=== PATIENT | female | born 1995 | race Hispanic/Latino ===

== ENCOUNTER 2021-12-29 05:41 | Inpatient (IN) | payer MEDICAID, SELFPAY ==
[2021-12-29] MEDS ORDERED: Promethazine HCl 25 MG/ML VIAL IM PRN ×3 (06:03→11:30)
[2021-12-29] MEDS ORDERED: Bicitra 30 ML UDCUP PO PRN (06:03)
[2021-12-29] MEDS ORDERED: hydrALAZINE 20 MG/ML VIAL SLOW IVP PRN ×2 (06:03→11:30)
[2021-12-29] MEDS ORDERED: Acetaminophen 500 MG TAB PO PRN (06:03)
[2021-12-29] MEDS ORDERED: Famotidine/PF 20 mg/2ml Vial SLOW IVP PRN (06:03)
[2021-12-29] MEDS ORDERED: Docusate 100 MG CAP PO PRN (06:03)
[2021-12-29] MEDS ORDERED: Ondansetron PF 4 MG/2 ML Vial IVP PRN ×3 (06:03→11:30)
[2021-12-29] MEDS ORDERED: Lactated Ringer's 1,000 ML IV SCH (06:15)
[2021-12-29] MEDS ORDERED: CEFAZOLIN 2 GM in Sodium Chloride 0.9% 100 ML IVPB SCH (06:15)
[2021-12-29 06:19] LABS: Hemoglobin 13.4 g/dL (12.0-15.5); Mean Corpuscular Hemoglobin 30.4 pg (27.0-33.0); Mean Corpuscular Volume 86.8 fl (81.6-98.3); Mean Platelet Volume 11.3 fl (7.4-10.4); Platelet Count 191 10x3/uL (150-450); RBC Distribution Width 12.8 % (11.5-14.5); Red Blood Cell (RBC) Count 4.41 10x6/uL (3.90-5.03); White Blood Cell (WBC) Count 11.6 10x3/uL (3.5-10.5)
[2021-12-29] MEDS ORDERED: Fentanyl 100 MCG/2 ML VIAL ONE (06:45)
[2021-12-29] MEDS ORDERED: Ketorolac Tromethamine 30 MG/ML VIAL ONE (06:46)
[2021-12-29 06:49] LABS: RapidComm Collect By CBN
[2021-12-29 06:50] LABS: RapidComm Collect By CBN
[2021-12-29 06:52] LABS: Syphilis Antibody Nonreactive (Nonreactive); Syphilis Antibody Index 0.06 S/CO (<1.00 Non-Reactive)
[2021-12-29 06:53] LABS: Hep B Surf Ag Non-Reactive S/CO (NonReactive)
[2021-12-29] MEDS ORDERED: Oxytocin 10 UNITS/ML VIAL ONE (06:58)
[2021-12-29] MEDS ORDERED: Fentanyl 100 MCG/2 ML VIAL SLOW IVP PRN (07:15)
[2021-12-29] MEDS ORDERED: diphenhydrAMINE 50 MG/ML VIAL IM PRN (07:15)
[2021-12-29] MEDS ORDERED: Communication Order-Pharmacy FS SCH (07:15)
[2021-12-29] MEDS ORDERED: Zolpidem Tartrate 5 MG TAB PO PRN (07:15)
[2021-12-29] MEDS ORDERED: Naloxone HCl 0.4 mg/ml Vial IV PRN (07:15)
[2021-12-29] MEDS ORDERED: diphenhydrAMINE 50 MG/ML VIAL IVP PRN (07:15)
[2021-12-29] MEDS ORDERED: Ketorolac Tromethamine 30 MG/ML VIAL IVP SCH (07:15)
[2021-12-29] MEDS ORDERED: diphenhydrAMINE 25 MG CAP PO PRN ×2 (07:15→11:30)
[2021-12-29] MEDS ORDERED: Ondansetron HCl/PF 4 MG/2 ML Vial IVP PRN (07:15)
[2021-12-29] MEDS ORDERED: Meperidine HCl/PF 25 MG/ML VIAL SLOW IVP PRN (07:15)
[2021-12-29 07:31] VITALS: BMI 23.6
[2021-12-29] MEDS: FENTANYL 500 MCG/10 ML VIAL 1,000 MCG in Sodium Chloride 0.9% 30 ML IV PRN ×2 (08:07→20:45)
[2021-12-29] MEDS ORDERED: Misoprostol 200 MCG TAB PR PRN (11:30)
[2021-12-29] MEDS ORDERED: Lanolin Ointment 7 GM TUBE TOP PRN (11:30)
[2021-12-29] MEDS ORDERED: Boostrix 0.5 ML (Tdap) VIAL (>/=7 yrs of age) IM ONE (11:30)
[2021-12-29] MEDS ORDERED: NS w/ Oxytocin 30 units 500 ML IV SCH (11:30)
[2021-12-29] MEDS ORDERED: Acetaminophen 325 MG TAB PO PRN (11:30)
[2021-12-29] MEDS ORDERED: Prenatal Vitamin 1 TAB PO SCH (11:45)
[2021-12-29] MEDS ORDERED: Ferrous Sulfate 325 MG TAB PO SCH (11:45)
[2021-12-29] MEDS ORDERED: Docusate 100 MG CAP PO SCH (11:45)
[2021-12-29] MEDS: Ketorolac Tromethamine 30 MG/ML VIAL IVP SCH ×2 (11:58→18:14)
[2021-12-29] MEDS: Simethicone Chewable 80 MG TAB PO PRN (18:47)
[2021-12-29] MEDS: Ferrous Sulfate 325 MG TAB PO SCH (21:03)
[2021-12-29] MEDS: Docusate 100 MG CAP PO SCH (21:03)
[2021-12-30] MEDS: Ketorolac Tromethamine 30 MG/ML VIAL IVP SCH ×2 (00:07→05:50)
[2021-12-30] MEDS: Simethicone Chewable 80 MG TAB PO PRN ×4 (00:20→21:10)
[2021-12-30 04:39] LABS: Hemoglobin 9.7 g/dL (12.0-15.5); Mean Corpuscular HGB CONC 34.3 g/dL (32.0-36.0); Mean Corpuscular Hemoglobin 30.8 pg (27.0-33.0); Mean Corpuscular Volume 89.8 fl (81.6-98.3); Mean Platelet Volume 10.9 fl (7.4-10.4); Platelet Count 119 10x3/uL (150-450); Red Blood Cell (RBC) Count 3.15 10x6/uL (3.90-5.03); White Blood Cell (WBC) Count 9.6 10x3/uL (3.5-10.5)
[2021-12-30] MEDS: Prenatal Vitamin 1 TAB PO SCH (08:45)
[2021-12-30] MEDS: Docusate 100 MG CAP PO SCH ×2 (08:45→21:09)
[2021-12-30] MEDS: Ferrous Sulfate 325 MG TAB PO SCH ×2 (08:46→21:09)
[2021-12-30] MEDS: HYDROcodone/Acetaminophen 5/325 mg Tablet PO PRN ×3 (12:17→20:27)
[2021-12-30] MEDS: Ibuprofen 800 MG TAB PO SCH ×2 (13:42→21:10)
[2021-12-31] MEDS: HYDROcodone/Acetaminophen 5/325 mg Tablet PO PRN ×4 (00:33→19:37)
[2021-12-31] MEDS: Ibuprofen 800 MG TAB PO SCH ×3 (06:03→21:01)
[2021-12-31 06:56] LABS: SARS-CoV-2 NAA Rapid Test Not Detected (NotDetected)
[2021-12-31] MEDS: Ferrous Sulfate 325 MG TAB PO SCH ×2 (08:28→21:01)
[2021-12-31] MEDS: Prenatal Vitamin 1 TAB PO SCH (08:28)
[2021-12-31] MEDS: Simethicone Chewable 80 MG TAB PO PRN (08:28)
[2021-12-31] MEDS: Docusate 100 MG CAP PO SCH ×2 (08:28→21:01)
[2022-01-01] MEDS: HYDROcodone/Acetaminophen 5/325 mg Tablet PO PRN ×4 (03:19→17:52)
[2022-01-01] MEDS: Ibuprofen 800 MG TAB PO SCH ×2 (05:24→13:38)
[2022-01-01] MEDS: Docusate 100 MG CAP PO SCH (08:56)
[2022-01-01] MEDS: Ferrous Sulfate 325 MG TAB PO SCH (08:56)
[2022-01-01] MEDS: Prenatal Vitamin 1 TAB PO SCH (08:56)
[2022-01-01 12:16] VITALS: BP 108/56; TEMP 97.4
== END 2022-01-01 18:25 | disposition home or self-care (01) | DRG 788 ==
LOC: CSHLD/OP 05:41 → CSHLD 07:08 → CSHPP 10:06
PROVIDERS: ADMIT Family Medicine; ATTEND Family Medicine
PROC: 10D00Z1 Extraction of Products of Conception, Low, Open Approach (ICD-10-PCS; principal; 2021-12-29)
DX: O32.1XX0 Maternal care for breech presentation, not applicable or unspecified (principal); Z3A.38 38 weeks gestation of pregnancy; Z37.0 Single live birth; O76 Abnormality in fetal heart rate and rhythm complicating labor and delivery; Z20.822 Contact with and (suspected) exposure to COVID-19; O69.81X0 Labor and delivery complicated by cord around neck, without compression, not applicable or unspecified; O77.0 Labor and delivery complicated by meconium in amniotic fluid
CPT/HCPCS: 36415; 51702; 82805; 85027; 86780; 86850; 86900; 86901; 87340; 88307; 99285; J1885; J2590; J3010; J3490; U0002

== ENCOUNTER 2023-08-13 06:14 | Inpatient (IN) | payer MEDICAID, OTHER ==
[2023-08-13 06:51] LABS: Hematocrit 38.2 % (34.9-44.5); Hemoglobin 13.4 g/dL (12.0-15.5); Mean Corpuscular HGB CONC 35.1 g/dL (32.0-36.0); Mean Corpuscular Hemoglobin 29.5 pg (27.0-33.0); Mean Corpuscular Volume 84.1 fL (81.6-98.3); Platelet Count 234 10x3/uL (150-450); RBC Distribution Width 12.9 % (11.5-14.5); Red Blood Cell (RBC) Count 4.54 10x6/uL (3.90-5.03); White Blood Cell (WBC) Count 13.2 10x3/uL (3.5-10.5)
[2023-08-13] MEDS ORDERED: Oxytocin 30 units/NS 500 ML 500 ML ONE (07:17)
[2023-08-13 07:25] LABS: HBsAg Index 0.18 S/CO (0-0.99); Hep B Surf Ag - L&D Non-Reactive S/CO (NonReactive)
[2023-08-13 07:26] LABS: Syphilis Antibody Nonreactive (Nonreactive); Syphilis Antibody Index 0.14 S/CO (<1.00 Non-Reactive)
[2023-08-13] MEDS: Ibuprofen 800 MG TAB PO SCH ×2 (08:42→18:29)
[2023-08-13] MEDS ORDERED: HYDROcodone/Acetaminophen 5/325 mg Tablet PO PRN (08:51)
[2023-08-13] MEDS ORDERED: Benzocaine-Menthol 82.5 ML CAN TOP PRN (08:51)
[2023-08-13] MEDS ORDERED: diphenhydrAMINE 25 MG CAP PO PRN (08:51)
[2023-08-13] MEDS ORDERED: hydrALAZINE 20 MG/ML VIAL SLOW IVP PRN (08:51)
[2023-08-13] MEDS ORDERED: Lanolin Ointment 7 GM TUBE TOP PRN (08:51)
[2023-08-13] MEDS ORDERED: Promethazine HCl 25 MG/ML VIAL IM PRN (08:51)
[2023-08-13] MEDS ORDERED: Boostrix 0.5 ML (Tdap) VIAL (>/=7 yrs of age) IM ONE (08:51)
[2023-08-13] MEDS ORDERED: Milk Of Magnesia 30 ML UDCUP PO PRN (08:51)
[2023-08-13] MEDS ORDERED: Bisacodyl 10 MG SUPP PR PRN (08:51)
[2023-08-13 08:53] VITALS: BMI 22.6
[2023-08-13] MEDS: Prenatal Vitamin 1 TAB PO SCH (10:18)
[2023-08-13] MEDS: Docusate 100 MG CAP PO SCH (10:19)
[2023-08-13] MEDS: Ferrous Sulfate 325 MG TAB PO SCH (21:27)
[2023-08-13] MEDS: Ondansetron PF 4 MG/2 ML Vial IVP PRN (21:27)
[2023-08-15 09:04] VITALS: BP 111/63; TEMP 97.9
== END 2023-08-15 10:55 | disposition home or self-care (01) | DRG 807 ==
LOC: CSHLD/OP 06:14 → CSHLD 06:44 → CSHPP 09:24
PROVIDERS: ADMIT Family Medicine; ATTEND Family Medicine
PROC: 10E0XZZ Delivery of Products of Conception, External Approach (ICD-10-PCS; principal; 2023-08-13)
DX: O60.14X0 Preterm labor third trimester with preterm delivery third trimester, not applicable or unspecified (principal); Z37.0 Single live birth; O34.211 Maternal care for low transverse scar from previous cesarean delivery; Z3A.36 36 weeks gestation of pregnancy
CPT/HCPCS: 85027; 86780; 86850; 86900; 86901; 87340; 88307; 99285; J2405